=== PATIENT | male | born 1970 | race Caucasian/White ===

== ENCOUNTER 2017-03-07 09:31 | Emergency (ER) | payer OTHER ==
[~2017-03-07] VITALS: Ht 185.4 cm; Wt 152.7 kg
[2017-03-07 12:12] VITALS: BP 157/59
== END 2017-03-07 12:16 ==
LOC: EME 09:31
DX: T82.838A Hemorrhage due to vascular prosthetic devices, implants and grafts, initial encounter (principal); E78.5 Hyperlipidemia, unspecified; Z99.2 Dependence on renal dialysis; Z79.01 Long term (current) use of anticoagulants; Z87.891 Personal history of nicotine dependence
CPT/HCPCS: 80048; 85027; 85610; 85730; 99281; 99284

== ENCOUNTER 2017-03-11 18:01 | Emergency (ER) | payer OTHER, BC ==
[~2017-03-11] VITALS: Ht 185.4 cm; Wt 147.5 kg
[2017-03-11 20:01] LABS: HEMATOCRIT 29.6 % (38.0-50.0); MCH 30.5 PG (29.0-34.0); MCHC 32.4 G/DL (30.0-36.0); MEAN PLAT.VOLUME 9.5 uM^3 (9.0-12.4); PLATELET COUNT 133 K/uL (156-360); RBC DIS.WIDTH-SD 54.3 % (39-53); RED BLOOD COUNT 3.15 M/uL (4.00-5.50); WHITE BLOOD COUNT 5.2 K/uL (4.1-10.2)
[2017-03-11 20:10] LABS: CHLORIDE 96 mEq/L (99-109); SODIUM 140 mEq/L (136-147)
[2017-03-11 20:12] LABS: GLUCOSE 121 mg/dL (70-99)
[2017-03-11 20:13] LABS: ANION GAP 11 MEQ/L (2-14)
[2017-03-11 20:14] LABS: TOTAL BILIRUBIN 0.5 mg/dL (0.0-1.0)
[2017-03-11 20:16] LABS: ALKALINE PHOSPHATASE 140 IU/L (3-129); GFR ESTIMATE (CALCULATED) 7 mL/min/
[2017-03-11 20:17] LABS: UREA NITROGEN (BUN) 38 mg/dL (9-23)
[2017-03-11 20:32] LABS: BASE EXCESS 12.5 mEq/L (-3 to +3); BICARBONATE 38.2 mEq/L (22-26); CARBOXY HGB 2.5 % (0-5); METHEMOGLOBIN 1.1 % (0-1.5); PCO2 55 mm Hg (35-45); pH 7.45 (7.35-7.45)
[2017-03-11 20:33] LABS: PO2 33 mm Hg (80-100); SITE RF
[2017-03-11 20:34] LABS: FI02 21 %
[2017-03-11 22:46] VITALS: BP 135/88
== END 2017-03-11 22:48 ==
LOC: EME 18:01
PROVIDERS: Emergency Medicine
DX: T42.4X5A Adverse effect of benzodiazepines, initial encounter (principal); T78.3XXA Angioneurotic edema, initial encounter; N18.6 End stage renal disease; Z99.2 Dependence on renal dialysis; H54.0 Blindness, both eyes; L08.9 Local infection of the skin and subcutaneous tissue, unspecified; Z87.891 Personal history of nicotine dependence; H40.9 Unspecified glaucoma; E11.9 Type 2 diabetes mellitus without complications; E78.5 Hyperlipidemia, unspecified
CPT/HCPCS: 36600; 70450; 80053; 82803; 85027; 99281; 99285; J7512

== ENCOUNTER 2017-03-19 01:07 | Inpatient (IN) | payer OTHER, BC ==
[~2017-03-19] VITALS: Ht 185.4 cm; Wt 147.6 kg
[2017-03-19 01:24] LABS: POINT-OF-CARE METER ID UU14100415; POINT-OF-CARE USER ID HMLKAV
[2017-03-19 02:44] LABS: EOSINOPHIL (%) 2.9 % (0-5); EOSINOPHIL COUNT 0.2 K/uL (0-0.3); HEMATOCRIT 30.4 % (38.0-50.0); IMMATURE GRANULOCYTE (%) 0.7 % (0.0-0.7); IMMATURE GRANULOCYTE COUNT 0.1 K/uL; INSTRUMENT ABS NEUTROPHIL CT 4.8 K/uL; LYMPHOCYTE COUNT 1.4 K/uL (1.0-2.8); MCH 30.8 PG (29.0-34.0); MCHC 32.9 G/DL (30.0-36.0); MCV 93.5 FL (86-99); MEAN PLAT.VOLUME 9.4 uM^3 (9.0-12.4); MONOCYTE (%) 5.6 % (3-12); MONOCYTE COUNT 0.4 K/uL (0-0.8); NEUTROPHIL (%) 70.1 % (45-76); NEUTROPHIL COUNT 4.8 K/uL (1.8-6.4); PLATELET COUNT 106 K/uL (156-360); RBC DIS.WIDTH-CV 15.7 % (11.8-14.6); RBC DIS.WIDTH-SD 53.5 % (39-53); RED BLOOD COUNT 3.25 M/uL (4.00-5.50); WHITE BLOOD COUNT 6.8 K/uL (4.1-10.2)
[2017-03-19 02:52] LABS: INTER. NORMALIZED RATIO 1.1; PTT 29.5 (25-32)
[2017-03-19 02:58] LABS: CHLORIDE 98 mEq/L (99-109); POTASSIUM 4.9 mEq/L (3.7-5.4); SODIUM 140 mEq/L (136-147)
[2017-03-19 03:00] LABS: GLUCOSE 125 mg/dL (70-99)
[2017-03-19 03:01] LABS: ANION GAP 12 MEQ/L (2-14)
[2017-03-19 03:02] LABS: TOTAL BILIRUBIN 0.7 mg/dL (0.0-1.0)
[2017-03-19 03:03] LABS: ALKALINE PHOSPHATASE 150 IU/L (3-129); TROP-I INTERPRETATION NEGATIVE; TROPONIN-I < 0.01 ng/mL (0.0-0.30)
[2017-03-19 03:04] LABS: GFR ESTIMATE (CALCULATED) 6 mL/min/
[2017-03-19 03:05] LABS: UREA NITROGEN (BUN) 48 mg/dL (9-23)
[2017-03-19 03:07] LABS: LIPASE 36 U/L (1.0-51.0)
[2017-03-19] MEDS ORDERED: FLEXERIL10 MG PO (13:19)
[2017-03-19] MEDS ORDERED: HYDROXYZINE HCL25 MG PO (13:19)
[2017-03-19] MEDS ORDERED: VANCOMYCIN1 GM/250 M IV (13:24)
[2017-03-19] MEDS ORDERED: ALTACHLORE LEFT EYE (13:27)
[2017-03-19] MEDS ORDERED: SENSIPAR30 MG PO (13:29)
[2017-03-19] MEDS ORDERED: SUDOGEST PE10 MG PO (13:29)
[2017-03-19] MEDS ORDERED: RENVELA800 MG PO (13:29)
[2017-03-19] MEDS ORDERED: REFRESH LI300 DROP/1 BOTH EYES (13:31)
[2017-03-19] MEDS ORDERED: TRAZODONE HCL100 MG PO ×3 (13:31→13:35)
[2017-03-19] MEDS ORDERED: SYSTANE ULTRA 015 ML BOTH EYES (13:32)
[2017-03-19] MEDS ORDERED: BENADRYL25 MG PO (13:37)
[2017-03-19] MEDS ORDERED: [UNRECOGNIZED DRUG - SUPPLY] TP (13:38)
[2017-03-19] MEDS ORDERED: COMBIGAN O20 DROP/5 BOTH EYES (13:40)
[2017-03-19] MEDS ORDERED: ASCORBIC ACID500 M3 PO (13:41)
[2017-03-19] MEDS ORDERED: OXYCODONE-ACET1 EACH PO (13:41)
[2017-03-19] MEDS ORDERED: ZINC SULFATE220 M1 PO (13:41)
[2017-03-19] MEDS ORDERED: ASPIR-LOW81 MG PO (13:42)
[2017-03-19] MEDS ORDERED: NICODERM CQ1 EAC2 TD (13:42)
[2017-03-19] MEDS ORDERED: VITAMIN D31000 UNI2 PO (13:43)
[2017-03-19] MEDS ORDERED: GLIPIZIDE5 MG PO (13:43)
[2017-03-19] MEDS ORDERED: COREG3.125 M1 PO (13:44)
[2017-03-19] MEDS ORDERED: HYDROXYZINE HCL50 MG PO (13:45)
[2017-03-19] MEDS ORDERED: PRAMIPEXOLE DIHY1 MG PO (13:45)
[2017-03-19] MEDS ORDERED: ATORVASTATIN CA20 MG PO (13:45)
[2017-03-19] MEDS ORDERED: NOVOLOG 10100 UNITS/ SC (13:46)
[2017-03-19] MEDS ORDERED: OMEPRAZOLE20 MG PO (13:47)
[2017-03-19] MEDS ORDERED: EFFEXOR XR150 MG PO (13:49)
[2017-03-19] MEDS ORDERED: EFFEXOR XR75 MG PO (13:49)
[2017-03-19] MEDS ORDERED: FLOVENT 11120 INHALA IH (13:50)
[2017-03-19 21:51] LABS: POINT-OF-CARE METER ID UU13113702
[2017-03-20 01:50] VITALS: BP 131/85
== END 2017-03-20 02:00 | disposition short-term general hospital (02) | DRG 314 ==
LOC: EME 01:07 → EDOF 12:58
PROVIDERS: Emergency Medicine; Internal Medicine
PROC: 5A1D00Z (ICD-10-PCS; principal; 2017-03-19)
DX: T82.7XXA Infection and inflammatory reaction due to other cardiac and vascular devices, implants and grafts, initial encounter (principal); B95.62 Methicillin resistant Staphylococcus aureus infection as the cause of diseases classified elsewhere; Y83.2 Surgical operation with anastomosis, bypass or graft as the cause of abnormal reaction of the patient, or of later complication, without mention of misadventure at the time of the procedure; L03.114 Cellulitis of left upper limb; N18.6 End stage renal disease; G93.40 Encephalopathy, unspecified; G47.33 Obstructive sleep apnea (adult) (pediatric); I12.0 Hypertensive chronic kidney disease with stage 5 chronic kidney disease or end stage renal disease; E11.22 Type 2 diabetes mellitus with diabetic chronic kidney disease; D63.8 Anemia in other chronic diseases classified elsewhere; Z99.2 Dependence on renal dialysis; Z94.0 Kidney transplant status; E66.01 Morbid (severe) obesity due to excess calories; T81.89XA Other complications of procedures, not elsewhere classified, initial encounter; S91.105A Unspecified open wound of left lesser toe(s) without damage to nail, initial encounter; E11.319 Type 2 diabetes mellitus with unspecified diabetic retinopathy without macular edema; E78.5 Hyperlipidemia, unspecified; F32.9 Major depressive disorder, single episode, unspecified; T86.12 Kidney transplant failure; Y83.0 Surgical operation with transplant of whole organ as the cause of abnormal reaction of the patient, or of later complication, without mention of misadventure at the time of the procedure; F41.9 Anxiety disorder, unspecified; Z89.431 Acquired absence of right foot; Z87.891 Personal history of nicotine dependence; I87.8 Other specified disorders of veins; I87.1 Compression of vein; I82.C12 Acute embolism and thrombosis of left internal jugular vein; I82.290 Acute embolism and thrombosis of other thoracic veins; Z68.41 Body mass index [BMI] 40.0-44.9, adult
CPT/HCPCS: 70450; 70490; 71010; 71250; 72050; 73200; 80048; 80053; 81003; 82948; 83605; 83690; 84484; 85025; 85027; 85610; 85730; 87040; 87070; 87075; 87077; 87147; 87186; 87205; 90837; 93005; 93971; 99281; 99285; C1752; J1630; J1815; J2060; J2250; J3370